=== PATIENT | male | born 1980 | race Caucasian/White ===

== ENCOUNTER → 2021-05-10 | Outpatient (CLI) | payer OTHER | LOC: HEART 5 14:55 | DX: Z01.810 Encounter for preprocedural cardiovascular examination (principal); C90.00 Multiple myeloma not having achieved remission; D49.2 Neoplasm of unspecified behavior of bone, soft tissue, and skin; F15.20 Other stimulant dependence, uncomplicated; I08.1 Rheumatic disorders of both mitral and tricuspid valves; I27.20 Pulmonary hypertension, unspecified | CPT/HCPCS: 93306 ==